=== PATIENT | female | born 1990 | race Two or more races ===

== ENCOUNTER 2021-04-06 09:45 | Outpatient (CLI) | payer OTHER | END 2021-04-06 09:52 | disposition home or self-care (01) | LOC: PPH VACUNA 09:45 | PROVIDERS: ATTEND Emergency Medicine Pediatric Emergency Medicine | DX: Z23 Encounter for immunization (principal) ==

== ENCOUNTER 2021-06-29 09:00 | Outpatient (CLI) | payer OTHER | END 2021-06-29 09:15 | disposition home or self-care (01) | LOC: PPH VACUNA 09:00 | PROVIDERS: ATTEND Emergency Medicine Pediatric Emergency Medicine | DX: Z23 Encounter for immunization (principal) ==

== ENCOUNTER 2022-01-10 16:40 | Outpatient (CLI) | payer OTHER | END 2022-01-10 16:41 | disposition home or self-care (01) | LOC: LAB 16:40 | DX: Z20.828 Contact with and (suspected) exposure to other viral communicable diseases (principal) ==

== ENCOUNTER 2022-03-19 11:08 | Outpatient (CLI) | payer OTHER | END 2022-03-19 15:15 | disposition home or self-care (01) | LOC: LAB 11:08 | PROVIDERS: ATTEND General Practice | DX: R05.9 Cough, unspecified (principal); Z20.822 Contact with and (suspected) exposure to COVID-19; R50.9 Fever, unspecified; R06.2 Wheezing ==

== ENCOUNTER 2022-07-02 08:27 | Outpatient (CLI) | payer OTHER | END 2022-07-02 09:26 | disposition home or self-care (01) | LOC: LAB 08:27 | PROVIDERS: ATTEND Preventive Medicine Occupational Medicine | DX: U07.1 COVID-19 (principal) ==

== ENCOUNTER 2025-01-17 10:23 | Outpatient (CLI) | payer OTHER | END 2025-01-17 10:28 | disposition home or self-care (01) | LOC: RAD 10:23 | PROVIDERS: ATTEND Orthopaedic Surgery | DX: S82.65XA Nondisplaced fracture of lateral malleolus of left fibula, initial encounter for closed fracture (principal); X58.XXXA Exposure to other specified factors, initial encounter; Y93.9 Activity, unspecified; Y92.9 Unspecified place or not applicable; Y99.9 Unspecified external cause status ==

== ENCOUNTER 2025-02-21 10:29 | Outpatient (CLI) | payer OTHER | END 2025-02-21 10:35 | disposition home or self-care (01) | LOC: RAD 10:29 | PROVIDERS: ATTEND Orthopaedic Surgery | DX: S82.65XA Nondisplaced fracture of lateral malleolus of left fibula, initial encounter for closed fracture (principal) ==

== ENCOUNTER 2025-03-15 10:39 | Outpatient (CLI) | payer OTHER | END 2025-03-15 10:44 | disposition home or self-care (01) | LOC: RAD 10:39 | PROVIDERS: ATTEND Orthopaedic Surgery | DX: S82.65XA Nondisplaced fracture of lateral malleolus of left fibula, initial encounter for closed fracture (principal); X58.XXXA Exposure to other specified factors, initial encounter; Y93.9 Activity, unspecified; Y92.9 Unspecified place or not applicable; Y99.9 Unspecified external cause status ==